=== PATIENT | male | born 1955 | race Caucasian/White ===

== ENCOUNTER 2017-02-27 11:45 | Emergency (ER) | payer OTHER ==
[~2017-02-27 11:45] MED LIST: NO MEDICATIONS; PERCOCET 5/3251 TAB PO
[2017-02-27] MEDS ORDERED: ULTRAM50 M1 PO (12:00)
[2017-02-27] MEDS ORDERED: CYCLOBENZAPRINE10 M1 PO (12:01)
[2017-02-27] MEDS ORDERED: MEDROL4 M2 PO (14:47)
[2017-02-27] MEDS ORDERED: NORCO 5-325 TA1 EACH PO (14:47)
== END 2017-02-27 15:18 ==
LOC: EDMED 11:45
DX: M51.16 Intervertebral disc disorders with radiculopathy, lumbar region (principal); F17.210 Nicotine dependence, cigarettes, uncomplicated
CPT/HCPCS: J1100; J1885; J2270; J2405; J7030